=== PATIENT | male | born 1995 ===

== ENCOUNTER 2016-11-30 19:04 | Emergency (ER) | payer OTHER ==
[2016-11-30 19:29] VITALS: BP 108/67; PULSE 61; RESP 14; TEMP 98; O2SAT 99
--- NOTE | 2016-11-30 19:50 | ED PDOC ---
HPI: CCC, URI, Sore Throat Time Seen by Provider: 11/30/16 19:37 Chief Complaint (Nursing): ENT Problem Chief Complaint (Provider): sore thoart History Per: Patient History/Exam Limitations: no limitations Have you had recent travel within the past 21 days to any of the following countries: [place], [place], [place] or [place]?: No Onset/Duration Of Symptoms: Days (3) Current Symptoms Are (Timing): Still Present Location Of Pain: Throat. denies: Ear(s), Sinus/es, Diffuse Myalgias, Headache Sick Contacts (Context): None Associated Symptoms: Fever, Chills, Sore Throat, Myalgias. denies: Cough, Sputum, Neck Pain, Sinus Drainage, Nasal Congestion, Nausea, Vomiting, Diarrhea Ear Symptoms: Bilateral: None Past Medical History Reviewed: Historical Data, Nursing Documentation, Vital Signs Vital Signs: Last Vital Signs Temp 98.0 F 11/30/16 19:26 Pulse 61 11/30/16 19:26 Resp 14 11/30/16 19:26 BP 108/67 11/30/16 19:26 Pulse Ox 99 11/30/16 19:26 - Medical History PMH: No Chronic Diseases - Family History Family History: States: No Known Family Hx - Home Medications Home Medications: Ambulatory Orders Medication Instructions Recorded Azithromycin [Zithromax] 250 mg PO DAILY #6 tab 11/30/16 - Allergies Allergies/Adverse Reactions: Allergies Allergy/AdvReac Type Severity Reaction Status Date / Time No Known Allergies Allergy Verified 11/30/16 19:26 Review of Systems ROS Statement: Except As Marked, All Systems Reviewed And Found Negative Constitutional: Positive for: Fever, Chills ENT: Positive for: Throat Pain, Throat Swelling Physical Exam - Reviewed Nursing Documentation Reviewed: Yes Vital Signs Reviewed: Yes - Physical Exam Appears: Positive for: Well, Non-toxic, No Acute Distress Head Exam: Positive for: ATRAUMATIC, NORMAL INSPECTION, NORMOCEPHALIC Skin: Positive for: Normal Color, Warm, DRY ENT: Positive for: Tonsillar Exudate, Tonsillar Swelling Cardiovascular/Chest: Positive for: Regular Rate, Rhythm Respiratory: Positive for: CNT, Normal Breath Sounds Neurologic/Psych: Positive for: Alert, Oriented - Laboratory Results Interpretation Of Abn Labs: strep negative - ECG O2 Sat by Pulse Oximetry: 99 Medical Decision Making Medical Decision Making: dx: pharyngitis pt with negative strep, however pt with exudates and swelling to tonsil will tx with Z-pack-will advise to have pmd Disposition - Clinical Impression Clinical Impression: Pharyngitis - Patient ED Disposition Is Patient to be Admitted: No Counseled Patient/Family Regarding: Studies Performed, Diagnosis, Need For Followup, Rx Given - Disposition Disposition: Routine/Home Disposition Time: 20:12 Condition: STABLE Prescriptions: Azithromycin [Zithromax] 250 mg PO DAILY #6 tab Instructions: Pharyngitis (ED) Print Language: SERBIAN
== END 2016-11-30 20:15 | disposition home or self-care (01) ==
LOC: H.ER 19:04
DX: J02.9 Acute pharyngitis, unspecified (principal)